=== PATIENT | male | born 1940 | race Caucasian/White ===

== ENCOUNTER 2018-04-11 07:54 | Outpatient (CLI) | payer MEDICARE ==
--- NOTE | 2018-04-11 09:31 | RAD ---
PA AND LATERAL CHEST: Indication: Radiculopathy, chest pain. Comparison: None. FINDINGS: The lungs are hyperinflated but clear. Heart size is upper limits of normal. There is mild thoracic s coliosis and diffuse osteopenia with multilevel spondylosis. IMPRESSION: 1. No acute cardiopulmonary abnormality. 2. Hyperinflation consistent with changes of COPD. POS: TPC
== END 2018-04-11 07:55 | disposition home or self-care (01) ==
LOC: RAD 07:54
PROVIDERS: ATTEND Internal Medicine Critical Care Medicine
DX: R06.00 Dyspnea, unspecified (principal); R91.8 Other nonspecific abnormal finding of lung field
CPT/HCPCS: 71046

== ENCOUNTER 2018-11-22 07:04 | Outpatient (CLI) | payer MEDICARE ==
--- NOTE | 2018-11-22 07:54 | ULT ---
Abdominal aortic ultrasound: INDICATIONS: Screening. History of nicotine use. FINDINGS: Mild atherosclerotic change seen in the abdominal aorta. No aneurysmal dilatation. Proximal abdominal aorta: 2.6 cm diameter Mid abdominal aorta: 2.3 cm diameter Distal abdominal aorta: 1.7 cm diameter Proximal common iliac arteries: 1 cm diameter IMPRESSION: No evidence of abdominal aortic aneurysm
== END 2018-11-22 07:05 | disposition home or self-care (01) ==
LOC: SCSULT 07:04
PROVIDERS: ATTEND Family Medicine
DX: Z13.6 Encounter for screening for cardiovascular disorders (principal)
CPT/HCPCS: 76775

== ENCOUNTER 2018-12-28 10:19 | Outpatient (CLI) | payer MEDICARE | END 2018-12-28 10:20 | disposition home or self-care (01) | LOC: CTENTCT 10:19 | PROVIDERS: ATTEND Otolaryngology Plastic Surgery within the Head & Neck | DX: J01.81 Other acute recurrent sinusitis (principal) | CPT/HCPCS: 70486 ==

== ENCOUNTER 2019-01-10 06:23 | Day surgery (SDC) | payer MEDICARE ==
[2019-01-09 15:10] VITALS: BMI 21.1
[2019-01-10] MEDS ORDERED: Oxymetazoline HCl 0.05% ( 15 ML ) ONE ×2 (06:46→07:07)
[2019-01-10] MEDS ORDERED: Lidocaine 1% w/Epinephrine 1:100K 20 ML VIAL ONE (07:07)
[2019-01-10] MEDS ORDERED: Fentanyl 100 MCG/2 ML VIAL ONE ×2 (07:09→08:16)
[2019-01-10 07:15] LABS: Hemoglobin 14.2 g/dL (14.0-18.0)
[2019-01-10] MEDS ORDERED: Dextrose 50% Abboject 50 ML SYRINGE ONE (07:22)
[2019-01-10 07:39] LABS: Anion Gap 10 mmol/L (10-20); BUN (Urea Nitrogen) 14 mg/dL (8.4-25.7); Calc. Creatinine Clearance 77 mL/min (70-130); Calcium 9.6 mg/dL (7.8-10.44); Carbon Dioxide 27 mmol/L (23-31); Chloride 108 mmol/L (98-107); Estimated GFR-MDRD 89; Glucose 61 mg/dL (83-110); Potassium 4.3 mmol/L (3.5-5.1); Sodium 141 mmol/L (136-145)
[2019-01-10] MEDS ORDERED: Bacitracin Zinc Ointment 30 gm TUBE ONE (07:48)
--- NOTE | 2019-01-10 11:21 | OP ---
DATE OF PROCEDURE: 01/10/2019 PREOPERATIVE DIAGNOSES: 1. Bilateral nasal polyposis. 2. Allergic fungal sinusitis. 3. Chronic rhinosinusitis. 4. Bilateral inferior turbinate hypertrophy. POSTOPERATIVE DIAGNOSES: 1. Bilateral nasal polyposis. 2. Allergic fungal sinusitis. 3. Chronic rhinosinusitis. 4. Bilateral inferior turbinate hypertrophy. PROCEDURES PERFORMED: 1. Bilateral endoscopic sinus surgery, frontal sinusotomies with removal of tissue. 2. Bilateral endoscopic sinus surgery, maxillary antrostomies with removal of tissue. 3. Bilateral endoscopic sinus surgery, sphenoidotomies with removal of tissue. 4. Bilateral inferior turbinate submucosal resection. ESTIMATED BLOOD LOSS: 50 mL. COMPLICATIONS: None. ANESTHESIA: GETA. PROCEDURE IN DETAIL: The patient was taken to the operating room, placed supine on the table. General endotracheal anesthesia was obtained by the anesthesia staff. Tube was secured in the left lower lip. The patient was placed in the beach chair position. Following this, Afrin pledgets were placed in nasal cavity. The patient was prepped and draped for standard nasal procedure. Following this, a 0-degree endoscope was advanced in the middle meatus. The middle turbinates were scarred completely to the lateral nasal wall. There was significant amount of scar, and nasal polyps were encountered as the middle meatus was dissected. The middle turbinates were gently medialized on the right side. The anterior portion of the middle turbinate had to be removed in order to provide access into the ethmoidal area. The previous antrostomies were barely visible, but had purulence streaming from the medial maxillary wall. This area was widened using the curved microdebrider bilaterally. Thick nasal polyps and allergic fungal debris were removed from the maxillary sinuses bilaterally. Following this, 40-degree scope and up-biting microdebrider blade were used to identify and open the frontal recess and frontal sinus ostia bilaterally. There was near complete scarring in this area, where fungal debris and nasal polyps were encountered throughout the frontal sinuses bilaterally. They were cleaned using curved suctions and irrigation device. Following this, the 0-degree microdebrider was then used to trim the remnant ethmoidal cells that had been previously resected. The sphenoid sinus was then approached using the 0-degree microdebrider and 0-degree endoscope, where anterior wall of the sphenoid sinus was encountered and was re-punctured using the microdebrider. Sphenoidotomies were created bilaterally using the 0-degree microdebrider in a medial and inferior direction. Allergic fungal debris and polyps were encountered within the sphenoid sinuses as well. Following this, the nasal cavity was irrigated. Mirapex was placed. Merocel pack was placed in the right nasal cavity. Job ID: [id number]
== END 2019-01-10 09:45 | disposition home or self-care (01) ==
LOC: SDC 06:23
PROVIDERS: ATTEND Otolaryngology Plastic Surgery within the Head & Neck
PROC: 099R8ZZ Drainage of Left Maxillary Sinus, Via Natural or Artificial Opening Endoscopic (ICD-10-PCS; principal; 2019-01-10)
PROC: 099Q8ZZ Drainage of Right Maxillary Sinus, Via Natural or Artificial Opening Endoscopic (ICD-10-PCS; 2019-01-10)
PROC: 09TL8ZZ Resection of Nasal Turbinate, Via Natural or Artificial Opening Endoscopic (ICD-10-PCS; 2019-01-10)
DX: J33.0 Polyp of nasal cavity (principal); J32.8 Other chronic sinusitis; J34.3 Hypertrophy of nasal turbinates; E11.9 Type 2 diabetes mellitus without complications; J45.909 Unspecified asthma, uncomplicated; Z79.4 Long term (current) use of insulin; Z79.82 Long term (current) use of aspirin; Z79.899 Other long term (current) drug therapy
CPT/HCPCS: 36415; 36416; 80048; 85014; 85018; 87070; 87102; 87205; 87206; 93005; 93010; J2001; J3010

== ENCOUNTER 2019-06-24 15:23 | Emergency (ER) | payer MEDICARE ==
[2019-06-24 16:05] LABS: #Basophils 0.1 thou/uL (0.0-0.2); #Eosinphils 1.6 thou/uL (0.0-0.7); #Lymphocytes 1.7 thou/uL (1.20-3.40); #Monocytes 1.3 thou/uL (0.11-0.59); #Neutrophils 6.7 thou/uL (1.40-6.50); %Lymphocytes 15.2 % (21.0-51.0); %Neutrophils 58.9 % (42.0-75.0); Hemoglobin 14.9 g/dL (14.0-18.0); Mean Corpuscular HGB CONC 33.5 g/dL (32.0-36.0); Mean Corpuscular Hemoglobin 31.8 pg (27.0-31.0); Mean Corpuscular Volume 94.7 fL (78.0-98.0); Mean Platelet Volume 7.1 fL (7.4-10.4); Platelet Count 307 thou/uL (130-400); RBC Distribution Width 12.3 % (11.5-14.5); White Blood Cell (WBC) Count 11.4 thou/uL (4.8-10.8)
[2019-06-24 16:29] LABS: ALT (SGPT) 20 U/L (8-55); AST (SGOT) 20 U/L (5-34); Albumin 4.2 g/dL (3.4-4.8); Alkaline Phosphatase 71 U/L (40-110); Anion Gap 14 mmol/L (10-20); BUN (Urea Nitrogen) 15 mg/dL (8.4-25.7); Bilirubin, Total 0.3 mg/dL (0.2-1.2); Calc. Creatinine Clearance 0 mL/min (70-130); Calcium 9.4 mg/dL (7.8-10.44); Carbon Dioxide 26 mmol/L (23-31); Chloride 105 mmol/L (98-107); Estimated GFR-MDRD 75; Globulin 2.8 g/dL (2.4-3.5); Glucose 81 mg/dL (83-110); Potassium 3.5 mmol/L (3.5-5.1); Sodium 141 mmol/L (136-145)
--- NOTE | 2019-06-24 16:29 | RAD ---
Chest AP view INDICATION: Found unresponsive with low blood sugar COMPARISON: Prior examination dated April 11, 2018 FINDINGS: Lungs:There is stable severe emphysema. No consolidation is evident. Cardiac silhouette:The cardiomediastinal silhouette appears within normal limits. Pulmonary vasculature:Normal Pleural spaces:No pleural effusion or pneumothorax is demonstrated. Upper abdomen:No abnormality seen. Osseous structures: No acute fracture or subluxation demonstrated. There is stable mild thoracic scol iosis. There is scattered degenerative and osteoarthritic change present. Additional findings:None. IMPRESSION: Stable emphysema. No acute cardiopulmonary abnormality.
[2019-06-24 17:12] LABS: Bacteria/HPF None Seen HPF (None Seen); Bilirubin Negative (Negative); Blood, Urine Trace (Negative); Clarity Clear (Clear); Glucose, Urine (Dipstick) Normal (Negative); Leukocyte Negative Leu/uL (Negative); Mucous/LPF Rare LPF (<2+); Nitrite Negative (Negative); Protein, Urine (Dipstick) 50 mg/dL (Neg-Trace); RBC/HPF 0-3 HPF (0-3); Squamous Epithelial None Seen HPF (0-3); Urobilinogen Normal mg/dL (Less than 2); WBC/HPF 0-3 HPF (0-3)
== END 2019-06-24 19:18 | disposition home or self-care (01) ==
LOC: ERS 15:23
DX: E10.649 Type 1 diabetes mellitus with hypoglycemia without coma (principal); J45.909 Unspecified asthma, uncomplicated
CPT/HCPCS: 36415; 36416; 71045; 80053; 81003; 81015; 85025; 87804

== ENCOUNTER 2019-07-06 10:32 | Inpatient (IN) | payer MEDICARE ==
[2019-07-06 11:07] LABS: #Basophils 0.1 thou/uL (0.0-0.2); #Eosinphils 0.9 thou/uL (0.0-0.7); #Lymphocytes 1.3 thou/uL (1.20-3.40); #Monocytes 0.4 thou/uL (0.11-0.59); #Neutrophils 7.6 thou/uL (1.40-6.50); %Basophils 0.6 % (0.0-1.0); %Eosinophils 9.1 % (0.0-10.0); %Lymphocytes 12.7 % (21.0-51.0); %Monocytes 3.6 % (0.0-10.0); %Neutrophils 74.1 % (42.0-75.0); Hemoglobin 15.5 g/dL (14.0-18.0); Mean Corpuscular HGB CONC 33.6 g/dL (32.0-36.0); Mean Corpuscular Hemoglobin 31.7 pg (27.0-31.0); Mean Corpuscular Volume 94.3 fL (78.0-98.0); Mean Platelet Volume 8.1 fL (7.4-10.4); Platelet Count 253 thou/uL (130-400); RBC Distribution Width 12.3 % (11.5-14.5); White Blood Cell (WBC) Count 10.3 thou/uL (4.8-10.8)
[2019-07-06] MEDS ORDERED: Magnesium 2 GM/50 ML BAG (IN WATER) ONE (11:09)
--- NOTE | 2019-07-06 11:26 | RAD ---
EXAM: Single view of the chest HISTORY: Difficulty breathing COMPARISON: 06/24/2019 FINDINGS: Single view of the chest shows a normal sized cardiomediastinal silhouette. There is no patricia dence of consolidation, mass, or pleural effusion. Degenerative changes are seen in the spine. IMPRESSION: No evidence of acute cardiopulmonary disease
[2019-07-06 11:29] LABS: ALT (SGPT) 18 U/L (8-55); AST (SGOT) 14 U/L (5-34); Albumin 4.2 g/dL (3.4-4.8); Alkaline Phosphatase 81 U/L (40-110); Anion Gap 16 mmol/L (10-20); BUN (Urea Nitrogen) 17 mg/dL (8.4-25.7); Bilirubin, Total 0.8 mg/dL (0.2-1.2); Calc. Creatinine Clearance 0 mL/min (70-130); Calcium 9.8 mg/dL (7.8-10.44); Carbon Dioxide 21 mmol/L (23-31); Chloride 104 mmol/L (98-107); Estimated GFR-MDRD 68; Glucose 267 mg/dL (83-110); Potassium 4.1 mmol/L (3.5-5.1); Protein, Total 7.2 g/dL (5.8-8.1); Sodium 137 mmol/L (136-145)
[2019-07-06] MEDS ORDERED: Albuterol Sulfate 2.5 mg/3 ml Neb ONE (13:12)
[2019-07-06] MEDS ORDERED: Insulin Regular 300 UNITS/3 ML VIAL ONE (15:00)
[2019-07-06] MEDS ORDERED: Ondansetron ODT 4 MG TAB SL PRN (16:29)
[2019-07-06] MEDS ORDERED: Ondansetron PF 4 MG/2 ML Vial IVP PRN (16:29)
[2019-07-06 16:33] VITALS: BMI 21.2
[2019-07-06] MEDS ORDERED: Acetaminophen 325 MG TAB PO PRN (17:24)
[2019-07-06] MEDS ORDERED: Dextrose 50% Abboject 50 ML SYRINGE SLOW IVP PRN (17:27)
[2019-07-06] MEDS ORDERED: Dextrose 5% in Water 1,000 ML IV PRN (17:27)
[2019-07-06] MEDS ORDERED: Benzonatate 100 MG CAP PO PRN (17:54)
[2019-07-06] MEDS ORDERED: Guaifenesin DM 100-10/5 ML UDCUP PO PRN (17:55)
[2019-07-06] MEDS: methylPREDNISolone Sod Succ 40 MG VIAL IVP SCH ×2 (18:04→23:43)
--- NOTE | 2019-07-06 18:19 | HP ---
PRIMARY CARE PHYSICIAN: Dr. Shaw. [facility] OP: Dr. Cantrell. CHIEF COMPLAINT: Shortness of breath, cough and wheezing for one week, worse in the past 3-4 days. HISTORY OF PRESENT ILLNESS: A 79-year-old male with past medical history of type 1 diabetes mellitus, on Levemir and Humalog; asthma, remote nicotine use, overactive bladder, who was referred to [facility] from Urgent Care after presenting there with 1-week history of worsening dyspnea, cough, wheezing, that worse in the past 3 to 4 days with functional limitations prompting Urgent Care evaluation. The patient is unable to see his housing case manager. The patient denies any recent sick contacts or flu-like symptoms. He received his influenza vaccine this season. He is unaware of any triggers. He has been compliant with twice daily Brovana and budesonide nebulizers and has been using albuterol rescue inhaler on an increased amount without any symptom relief. At Urgent Care, the patient received 3 nebulized treatments and a Decadron injection with ongoing respiratory complaints and wheezing and a chest x-ray was unremarkable. He was referred to [place] [facility] for further evaluation. In ER, the patient received additional nebulized bronchodilators as well as IV magnesium sulfate, but symptoms persisted and he was admitted for further observation. At bedside, the patient is accompanied by his spouse and [id number]. He corroborates history. He offers no other acute complaints. He reports his last asthma flare-up was 4 months ago and he sought outpatient evaluation at that time. He denies any prior history of ventilator dependence. He otherwise feels well. He denies any recent travel or any increased outdoor exposure. PAST MEDICAL HISTORY: Type 1 diabetes mellitus, asthma, overactive bladder. PAST SURGICAL HISTORY: Appendectomy, varicocele surgery, cervical neck fusion. SOCIAL HISTORY: The patient is , lives at home with his spouse. Admits to remote nicotine dependence. He denies any current tobacco use. He drinks beer 3 times per week. He is ambulatory and functional without assistive device. He does not use home oxygen. ALLERGIES: NONE DOCUMENTED. REVIEW OF SYSTEMS: Pertinent positives as per HPI. Remainder of review of systems negative. HOME MEDICATION: Will be reviewed as per admission medication reconciliation. FAMILY HISTORY: The patient denies any chronic medical problems in family members. PHYSICAL EXAMINATION: VITAL SIGNS: T-max, afebrile at 97.6; pulse 98, respirations 18, blood pressure 154/68, oxygen saturation 96% on room air. GENERAL APPEARANCE: Elderly thin male, who is awake, alert, oriented, quite lucid, speaking in full complete sentences. Mildly tachypneic. HEENT: Normocephalic, atraumatic. No facial asymmetry. Mucous membranes moist. Pupils are equally round. Extraocular muscles intact. NECK: Supple. CARDIOVASCULAR: S1 and S2. Regular rate and rhythm. No harsh murmurs. No reproducible chest wall tenderness to palpation. LUNGS: The patient is tachypneic with mild increased work of breathing noted. Diffuse expiratory wheezing throughout bilateral posterior lung oliveros with no rales audible. ABDOMEN: Soft, nontender, nondistended. EXTREMITIES: No appreciable lower extremity edema. SKIN: Warm to touch without rash, pallor, or abrasion. LABORATORY VALUES: WBC 10.3, H and H 15.5/46.2, platelets 253. Differential is otherwise unremarkable. Chemistry; sodium 137, potassium 4.1, chloride 104, bicarb 21, glucose 267, BUN and creatinine 17/1.06, GFR 68. LFTs unremarkable. Troponin I negative x1. BNP 28. Magnesium 1.9. Accu-Chek 398. IMAGING STUDIES: A one view chest x-ray on 07/06/2019, reveals no evidence of acute cardiopulmonary disease. ASSESSMENT: 1. Acute asthma exacerbation of unspecified etiology. The patient will be admitted as observation status. He is noted to have worsening respiratory symptoms for the past 1 week, particularly exacerbating last 3 to 4 days. No relief with temporizing home measures. We will continue parenteral glucocorticoids in the setting of known type 1 diabetes mellitus and monitor for glycemic control, continue nebulized bronchodilators while awake, and supportive therapies with as needed antitussive agents. We will monitor for symptom response and consider Pulmonology evaluation in a.m. if no significant improvement. The patient denies any prior history of ventilator dependence. We will check a respiratory pathogen panel. Restart Brovana and budesonide twice daily nebulizers. 2. Type 1 diabetes mellitus. We will increase basal insulin to 25 units nightly and continue premeal Humalog 10 units and insulin sliding scale coverage. The patient reports recent ER evaluation for symptomatic hypoglycemia. These changes will be temporary noting IV steroid use. 3. History of remote nicotine dependence. 4. Overactive bladder. Continue Myrbetriq. 5. DVT prophylaxis: SCDs and ambulation. 6. Disposition: The patient will be admitted to observation status. Anticipate less than 24-hour stay pending the patient's clinical course. Job ID: [id number]
[2019-07-06] MEDS: Arformoterol 15 MCG/2 ML NEB NEB SCH (19:56)
[2019-07-06] MEDS: Budesonide 0.5 MG/2 ML NEB NEB SCH (20:10)
[2019-07-06] MEDS: Insulin Glargine 25 UNITS in Pre-Filled Syringe 1 EACH SC SCH (20:40)
[2019-07-06] MEDS: HumaLOG 300 UNITS/3 ML VIAL SC PRN (20:41)
[2019-07-07] MEDS: methylPREDNISolone Sod Succ 40 MG VIAL IVP SCH ×3 (05:56→21:01)
[2019-07-07] MEDS: HumaLOG 300 UNITS/3 ML VIAL SC SCH ×3 (06:02→18:03)
[2019-07-07] MEDS: Budesonide 0.5 MG/2 ML NEB NEB SCH (07:55)
[2019-07-07] MEDS: Arformoterol 15 MCG/2 ML NEB NEB SCH ×2 (07:56→20:04)
[2019-07-07] MEDS: Aspirin 81 mg Enteric Coated Tablet PO SCH (08:17)
--- NOTE | 2019-07-07 12:22 | PDOC.HOSPP ---
- Subjective Encounter Date: 07/07/19 Encounter Time: 12:15 Subjective: cc: f/u for asthma exacerbation subjective: feels no better. still with significant wheezing and exacerbated with deep breaths and coughing. notes functional limitations. did not sleep well overnight. notes history of sinus surgery january 2019. concerned about his elevated accuchecks. spouse at bedside and agrees. nurse notes elevated accuchecks. - Objective Vital Signs & Weight: Vital Signs (12 hours) Temp Pulse Resp BP Pulse Ox 07/07/19 12:00 103 H 20 134/62 07/07/19 11:30 98 20 99 07/07/19 07:56 65 20 99 07/07/19 07:53 65 20 99 07/07/19 07:51 97.7 F 84 18 160/72 H 96 07/07/19 04:14 98.0 F 94 18 119/80 96 Weight Weight 161 lb 4.8 oz I&O: 07/06/19 07/07/19 07/08/19 06:59 06:59 06:59 Intake Total 1682 Output Total 1325 Balance 357 Result Diagrams: 07/06/19 10:57 07/06/19 10:57 Additional Labs: Accuchecks 07/07/19 07/07/19 07/06/19 10:54 05:59 20:26 POC Glucose 417 H 330 H 474 H 07/06/19 16:54 POC Glucose 398 H Hospitalist ROS - Review of Systems Other: ROS: pertinent positive per SUBJECTIVE; remainder ROS negative - Medication Medications: Active Medications Generic Name Dose Route Start Last Admin Trade Name Freq PRN Reason Stop Dose Admin Albuterol/Ipratropium 3 ml 07/06/19 19:00 07/07/19 11:30 Duoneb EZPAP 3 ml [id number] DEVANTE Administration Arformoterol Tartrate 15 mcg 07/06/19 18:30 07/07/19 07:56 Brovana NEB 15 mcg BID-RT DEVANTE Administration Aspirin 81 mg 07/07/19 09:00 07/07/19 08:17 Ecotrin PO 81 mg DAILY DEVANTE Administration Budesonide 0.5 mg 07/06/19 18:30 07/07/19 07:55 Pulmicort Neb Solution NEB 0.5 mg BID-RT DEVANTE Administration Insulin Glargine 25 units/ 0.25 mls @ 0 mls/hr 07/06/19 21:00 07/06/19 20:40 Miscellaneous Medication SC 0.25 mls HS DEVANTE Administration Insulin Human Lispro 10 units 07/07/19 08:00 07/07/19 06:02 Humalog SC 10 unit 0800 DEVANTE Administration Insulin Human Lispro 10 units 07/07/19 12:00 07/07/19 11:03 Humalog SC 10 unit 1200 DEVANTE Administration Insulin Human Lispro 0 units 07/06/19 17:27 07/06/19 20:41 Humalog SC 5 unit .BEDTIME SLIDING SC PRN Administration Bedtime Correctional Scale Mirabegron 50 mg 07/06/19 21:00 07/06/19 20:39 Myrbetriq Er PO 50 mg HS DEVANTE Administration Sodium Chloride 10 ml 07/06/19 16:29 07/07/19 05:56 Flush - Normal Saline IVF 10 ml PRN PRN Administration Saline Flush - Exam General Appearance: awake alert Eye: PERRL, anicteric sclera ENT: normocephalic atraumatic, no oropharyngeal lesions, moist mucosa Neck: supple Heart: RRR, no murmur Respiratory: normal chest expansion Respiratory - other findings: diffuse wheezing in bilateral posterior lung oliveros with cough spasms Gastrointestinal: soft, non-tender, non-distended Extremities: no cyanosis, no clubbing, no edema Skin: normal turgor, no lesions Neurological: normal sensation to touch, no weakness, no focal deficits Musculoskeletal: normal tone, normal strength, no muscle wasting Psychiatric: normal affect, normal behavior, A&O x 3 Hosp A/P - Plan Acute asthma exacerbation: unchanged. patient unsafe for discharge due to respiratory symptoms. will change to inpatient status and continue IV steroids but decrease to 40 mg q8 hours, continue nebulizers, start claritin and singulair, continue prn antitussive agents, start IV zithromax, consult pulmonology and monitor for symptom improvement. consult PT and OT in AM T1DM with hyperglycemia. iv steroids resulting in uncontrolled accuchecks. Continue increased nightly Lantus 25 unitsand given additional Lantus 15 units now. Discussed with patient and spouse who agree with plan and note patient previously required up to this amount of basal insulin; continue 10 units Humalog TIDAC and additional ac/hs ISS. Accuchecks have persisted over 400. History sinus surgery BPH. continue myrbetriq DVT px:SCD. start LMWH im AM code status: full code Dispo: change to inpatient status
[2019-07-07] MEDS ORDERED: Insulin Glargine 15 UNITS in Pre-Filled Syringe 1 EACH SC SCH (12:30)
[2019-07-07] MEDS: HumaLOG 300 UNITS/3 ML VIAL SC PRN ×2 (12:43→18:04)
[2019-07-07] MEDS ORDERED: Loratadine 10 MG TAB PO SCH (13:15)
[2019-07-07] MEDS ORDERED: Bacteriostatic Water 30 ML VIAL FS PRN (13:15)
[2019-07-07] MEDS: Azithromycin 500 MG in Sodium Chloride 0.9% 250 ML 250 ML IVPB SCH (13:54)
--- NOTE | 2019-07-07 15:48 | CON ---
DATE OF CONSULTATION: 07/07/2019 CONSULTING PHYSICIAN: Hospitalist Group. REASON FOR CONSULTATION: Asthma exacerbation. HISTORY OF PRESENT ILLNESS: Mr. Espino is a pleasant 79-year-old male, who sees Dr. Cantrell as an outpatient for asthma. He has been taking inhaled budesonide and formoterol twice a day for his asthma. Over the last 4 days, symptoms have been worse and he has not been responding to that medication. He was taken to the clinic and was given about 3 breathing treatments without improvement. He was given a dose of IV steroids, subsequently sent over here for further evaluation. He was initially put on observation, but has now been admitted to the hospital. PAST MEDICAL HISTORY: 1. Asthma. 2. Diabetes mellitus. 3. Overactive bladder. PAST SURGICAL HISTORY: 1. Appendectomy. 2. Varicella surgery. 3. Cervical neck fusion. SOCIAL HISTORY: The patient smoked, but quit about 40 years ago. Does not consume alcohol at significant quantities, but does have an occasional beer. REVIEW OF SYSTEMS: Twelve-point review of systems is otherwise negative. ALLERGIES: NONE. FAMILY MEDICAL HISTORY: Unremarkable. MEDICATIONS: Prior to admission, in addition to the above, he is taking; 1. Mirabegron. 2. Levemir insulin. 3. NovoLog insulin. 4. Budesonide. 5. Aspirin. PHYSICAL EXAMINATION: VITAL SIGNS: Temperature 97.7, pulse 103, respirations 20, O2 saturation 99% room air, and blood pressure 134/62. GENERAL: He is awake and alert. He has audible wheezing when talking. HEENT: Unremarkable. NECK: No adenopathy or JVD. LUNGS: [id number] wheezing bilaterally with no accessory muscle use. CARDIAC: S1 and S2. Regular. ABDOMEN: Soft. EXTREMITIES: No edema. LABORATORY DATA: White blood cell count 10.3, hematocrit 46.2, and platelet count 253. Sodium 137, potassium 4.1, chloride 104, CO2 of 21, BUN 17, creatinine 1.1, and glucose 267. ASSESSMENT: Asthma with exacerbation. PLAN: He needs IV corticosteroids, aggressive nebulization therapy, and antibiotics. He needs to stay in the hospital until he feels better. Right now, nothing on his x-ray looks like acute pneumonia. This encompassed 50 minutes of time, of that time, greater than 50% was spent with the patient and/or the patient's unit in the hospital. Job ID: [id number]
[2019-07-07] MEDS: Budesonide 0.5 MG/2 ML NEB INH SCH (20:04)
[2019-07-07] MEDS: diphenhydrAMINE 25 MG CAP PO SCH (21:00)
[2019-07-07] MEDS: Montelukast Sodium 10 mg Tablet PO SCH (21:00)
[2019-07-07] MEDS: Insulin Glargine 25 UNITS in Pre-Filled Syringe 1 EACH SC SCH (21:01)
[2019-07-08] MEDS: methylPREDNISolone Sod Succ 40 MG VIAL IVP SCH ×3 (05:22→21:47)
[2019-07-08] MEDS: Budesonide 0.5 MG/2 ML NEB INH SCH ×2 (08:00→19:52)
[2019-07-08] MEDS: Arformoterol 15 MCG/2 ML NEB NEB SCH ×2 (08:00→19:52)
[2019-07-08] MEDS: Loratadine 10 MG TAB PO SCH (08:49)
[2019-07-08] MEDS: Aspirin 81 mg Enteric Coated Tablet PO SCH (08:49)
[2019-07-08] MEDS: HumaLOG 300 UNITS/3 ML VIAL SC SCH ×3 (08:49→16:57)
--- NOTE | 2019-07-08 10:38 | PDOC.HOSPP ---
- Subjective Encounter Date: 07/08/19 Encounter Time: 10:15 Subjective: cc: f/u for asthma exacerbation subjective: seen this morning. spouse at bedside. feels a little better at rest but wheezing with coughing episodes and dyspneic on exertion. does not feel back to his baseline. - Objective Vital Signs & Weight: Vital Signs (12 hours) Temp Pulse Resp BP BP Pulse Ox 07/08/19 08:00 97.5 F L 84 20 120/70 98 07/08/19 04:00 97.8 F 86 20 135/69 95 Weight Weight 161 lb 4.8 oz I&O: 07/07/19 07/08/19 07/09/19 06:59 06:59 06:59 Intake Total 1682 Output Total 1325 Balance 357 Result Diagrams: 07/06/19 10:57 07/06/19 10:57 Additional Labs: Accuchecks 07/08/19 07/07/19 07/07/19 04:34 20:56 18:05 POC Glucose 192 H 132 H 298 H 07/07/19 10:54 POC Glucose 417 H Hospitalist ROS - Review of Systems Other: ROS: pertinent positives per SUBJECTIVE; remainder ROS negative - Medication Medications: Active Medications Generic Name Dose Route Start Last Admin Trade Name Freq PRN Reason Stop Dose Admin Albuterol/Ipratropium 3 ml 07/06/19 19:00 07/08/19 08:01 Duoneb EZPAP 3 ml [id number] DEVANTE Administration Arformoterol Tartrate 15 mcg 07/06/19 18:30 07/08/19 08:00 Brovana NEB 15 mcg BID-RT DEVANTE Administration Aspirin 81 mg 07/07/19 09:00 07/08/19 08:49 Ecotrin PO 81 mg DAILY DEVANTE Administration Budesonide 0.5 mg 07/07/19 18:30 07/08/19 08:00 Pulmicort Neb Solution INH 0.5 mg BID-RT DEVANTE Administration Diphenhydramine HCl 25 mg 07/07/19 21:00 07/07/19 21:00 Benadryl PO 25 mg HS DEVANTE Administration Insulin Glargine 25 units/ 0.25 mls @ 0 mls/hr 07/06/19 21:00 07/07/19 21:01 Miscellaneous Medication SC 0.25 mls HS DEVANTE Administration Azithromycin 500 mg/ Sodium 250 mls @ 250 mls/hr 07/07/19 14:00 07/07/19 13: 54 Chloride IVPB 250 mls 1400 DEVANTE Administration Insulin Human Lispro 10 units 07/07/19 08:00 07/08/19 08:49 Humalog SC 10 unit 0800 DEVANTE Administration Insulin Human Lispro 10 units 07/07/19 12:00 07/07/19 11:03 Humalog SC 10 unit 1200 DEVANTE Administration Insulin Human Lispro 10 units 07/07/19 17:00 07/07/19 18:03 Humalog SC 10 unit 1700 DEVANTE Administration Insulin Human Lispro 0 units 07/06/19 17:27 07/07/19 18:04 Humalog SC 6 unit .MODERATE SLIDING SC PRN Administration Moderate Correctional Scale Insulin Human Lispro 0 units 07/06/19 17:27 07/06/19 20:41 Humalog SC 5 unit .BEDTIME SLIDING SC PRN Administration Bedtime Correctional Scale Loratadine 10 mg 07/08/19 09:00 07/08/19 08:49 Claritin PO 10 mg DAILY DEVANTE Administration Methylprednisolone Sodium Succinate 40 mg 07/07/19 22:00 07/08/19 05:22 Solu-Medrol IVP 40 mg Q8HR DEVANTE Administration Mirabegron 50 mg 07/06/19 21:00 07/07/19 21:00 Myrbetriq Er PO 50 mg HS DEVANTE Administration Montelukast Sodium 10 mg 07/07/19 21:00 07/07/19 21:00 Singulair PO 10 mg QPM DEVANTE Administration Sodium Chloride 10 ml 07/06/19 16:29 07/07/19 05:56 Flush - Normal Saline IVF 10 ml PRN PRN Administration Saline Flush Hosp A/P - Plan PHYSICAL EXAM: General Appearance: awake alert Eye: PERRL, anicteric sclera ENT: normocephalic atraumatic, no oropharyngeal lesions, moist mucosa Neck: supple Heart: RRR, no murmur Respiratory: normal chest expansion Respiratory - other findings: diffuse wheezing in bilateral posterior lung oliveros with cough spasms Gastrointestinal: soft, non-tender, non-distended Extremities: no cyanosis, no clubbing, no edema Skin: normal turgor, no lesions Neurological: normal sensation to touch, no weakness, no focal deficits Musculoskeletal: normal tone, normal strength, no muscle wasting Psychiatric: normal affect, normal behavior, A&O x 3 Acute asthma exacerbation: some improvement but not back towards baseline. continue IV solu-medrol 40 mg q8 hours, schedule duonebs, nebulizers with budesonide and brovana, claritin, singulair, IV zithromax, continue prn antitussive agents. Pulmonology following. continue PT and OT. T1DM with hyperglycemia. monitor accuchecks with basal and log insulin and ISS coverage History sinus surgery 01/2019 BPH. continue myrbetriq DVT px: start LMWH code status: full code Dispo: continue inpatient monitoring.
[2019-07-08] MEDS: HumaLOG 300 UNITS/3 ML VIAL SC PRN ×2 (11:43→22:03)
--- NOTE | 2019-07-08 13:18 | PRG ---
DATE OF SERVICE: 07/08/2019 SUBJECTIVE: He says he feels better than yesterday, but not quite back to baseline. OBJECTIVE: VITAL SIGNS: Temperature is 98.0, pulse 98, respirations 16, O2 saturation 100% on room air, blood pressure 124/67. HEAD AND NECK: Unremarkable. LUNGS: Have diffuse wheezing, but better than yesterday. CARDIAC: S1 and S2. Regular. ABDOMEN: Soft. EXTREMITIES: No edema. ASSESSMENT: Asthma with exacerbation. PLAN: Continue the antibiotics. Schedule nebulization treatments and IV steroids. Hopefully, able to go home in the next 1 to 2 days. Job ID: [id number]
[2019-07-08] MEDS: Azithromycin 500 MG in Sodium Chloride 0.9% 250 ML 250 ML IVPB SCH (14:25)
[2019-07-08] MEDS ORDERED: Clopidogrel Bisulfate 75 MG TAB ONE (21:36)
[2019-07-08] MEDS: Montelukast Sodium 10 mg Tablet PO SCH (21:46)
[2019-07-08] MEDS: diphenhydrAMINE 25 MG CAP PO SCH (21:46)
[2019-07-08] MEDS: Insulin Glargine 25 UNITS in Pre-Filled Syringe 1 EACH SC SCH (22:01)
[2019-07-09] MEDS: methylPREDNISolone Sod Succ 40 MG VIAL IVP SCH ×3 (05:35→22:47)
[2019-07-09] MEDS: HumaLOG 300 UNITS/3 ML VIAL SC PRN (05:39)
[2019-07-09] MEDS: Arformoterol 15 MCG/2 ML NEB NEB SCH ×2 (06:56→19:46)
[2019-07-09] MEDS: Budesonide 0.5 MG/2 ML NEB INH SCH ×2 (06:58→19:46)
[2019-07-09] MEDS: Aspirin 81 mg Enteric Coated Tablet PO SCH (09:01)
[2019-07-09] MEDS: Loratadine 10 MG TAB PO SCH (09:01)
[2019-07-09] MEDS: HumaLOG 300 UNITS/3 ML VIAL SC SCH ×3 (09:01→17:45)
[2019-07-09] MEDS: Enoxaparin Sodium 40 MG/0.4 ML SYRINGE SC SCH (09:01)
--- NOTE | 2019-07-09 09:05 | PRG ---
DATE OF SERVICE: 07/09/2019 SUBJECTIVE: The patient is doing reasonably well without much change. He is still coughing up purulent secretions and wheezing. OBJECTIVE: VITAL SIGNS: Temperature 98.0, pulse 99, O2 saturation 99%, and blood pressure 167/77. HEENT: Unremarkable. NECK: No adenopathy or JVD. LUNGS: Diffuse wheezing. CARDIAC: S1 and S2. Regular. ABDOMEN: Soft. EXTREMITIES: No edema. ASSESSMENT: Asthma with exacerbation. PLAN: The patient is not ready to go home. He is to continue steroids, nebulization treatments, and antibiotics. Job ID: [id number]
--- NOTE | 2019-07-09 12:27 | PDOC.HOSPP ---
- Subjective Encounter Date: 07/09/19 Encounter Time: 12:15 Subjective: cc: f/u for asthma exacerbation subjective:patient seen this afternoon. spouse at bedside. feels a little better primarily at rest but he still voices concern of dyspnea and wheezing and spasms with exertion and deep breaths with coughing. nurse notes no acute overnight events. - Objective Vital Signs & Weight: Vital Signs (12 hours) Temp Pulse Resp BP Pulse Ox 07/09/19 11:46 98.3 F 85 16 135/69 99 07/09/19 10:33 78 16 97 07/09/19 07:48 98.0 F 99 16 167/77 H 99 07/09/19 06:58 102 H 18 100 07/09/19 06:56 102 H 18 100 07/09/19 04:23 98.1 F 90 18 116/65 96 Weight Weight 161 lb 4.8 oz I&O: 07/08/19 07/09/19 07/10/19 06:59 06:59 06:59 Intake Total 240 400 Output Total 350 Balance -110 400 Result Diagrams: 07/06/19 10:57 07/06/19 10:57 Additional Labs: Accuchecks 07/09/19 07/09/19 07/08/19 11:52 05:29 22:03 POC Glucose 130 H 277 H 375 H 07/08/19 16:12 POC Glucose 118 H Hospitalist ROS - Review of Systems Other: ROS: pertinent positive per SUBJECTIVE. remainder ROS negative - Medication Medications: Active Medications Generic Name Dose Route Start Last Admin Trade Name Freq PRN Reason Stop Dose Admin Albuterol/Ipratropium 3 ml 07/06/19 19:00 07/09/19 10:33 Duoneb EZPAP 3 ml [id number] DEVANTE Administration Arformoterol Tartrate 15 mcg 07/06/19 18:30 07/09/19 06:56 Brovana NEB 15 mcg BID-RT DEVANTE Administration Aspirin 81 mg 07/07/19 09:00 07/09/19 09:01 Ecotrin PO 81 mg DAILY DEVANTE Administration Budesonide 0.5 mg 07/07/19 18:30 07/09/19 06:58 Pulmicort Neb Solution INH 0.5 mg BID-RT DEVANTE Administration Diphenhydramine HCl 25 mg 07/07/19 21:00 07/08/19 21:46 Benadryl PO 25 mg HS DEVANTE Administration Enoxaparin Sodium 40 mg 07/09/19 09:00 07/09/19 09:01 Lovenox SC 40 mg 0900 DEVANTE Administration Insulin Glargine 25 units/ 0.25 mls @ 0 mls/hr 07/06/19 21:00 07/08/19 22:01 Miscellaneous Medication SC 0.25 mls HS DEVANTE Administration Azithromycin 500 mg/ Sodium 250 mls @ 250 mls/hr 07/07/19 14:00 07/08/19 14: 25 Chloride IVPB 250 mls 1400 DEVANTE Administration Insulin Human Lispro 10 units 07/07/19 08:00 07/09/19 09:01 Humalog SC 10 unit 0800 DEVANTE Administration Insulin Human Lispro 10 units 07/07/19 12:00 07/08/19 11:43 Humalog SC 10 unit 1200 DEVANTE Administration Insulin Human Lispro 10 units 07/07/19 17:00 07/08/19 16:57 Humalog SC Not Given 1700 [facility] Insulin Human Lispro 0 units 07/06/19 17:27 07/09/19 05:39 Humalog SC 6 unit .MODERATE SLIDING SC PRN Administration Moderate Correctional Scale Insulin Human Lispro 0 units 07/06/19 17:27 07/08/19 22:03 Humalog SC 5 unit .BEDTIME SLIDING SC PRN Administration Bedtime Correctional Scale Loratadine 10 mg 07/08/19 09:00 07/09/19 09:01 Claritin PO 10 mg DAILY DEVANTE Administration Methylprednisolone Sodium Succinate 40 mg 07/07/19 22:00 07/09/19 05:35 Solu-Medrol IVP 40 mg Q8HR DEVANTE Administration Mirabegron 50 mg 07/06/19 21:00 07/08/19 21:56 Myrbetriq Er PO 50 mg HS DEVANTE Administration Montelukast Sodium 10 mg 07/07/19 21:00 07/08/19 21:46 Singulair PO 10 mg QPM DEVANTE Administration Sodium Chloride 10 ml 07/06/19 16:29 07/07/19 05:56 Flush - Normal Saline IVF 10 ml PRN PRN Administration Saline Flush Hosp A/P - Plan PHYSICAL EXAM: General Appearance: awake alert calm with intermittent coughing episodes and bronchospasm Eye: PERRL, anicteric sclera ENT: normocephalic atraumatic, no oropharyngeal lesions, moist mucosa Neck: supple Heart: RRR, no murmur Respiratory: normal chest expansion Respiratory - other findings: some improvement in diffuse wheezing in bilateral posterior lung oliveros with cough spasms Gastrointestinal: soft, non-tender, non-distended Extremities: no cyanosis, no clubbing, no edema Skin: normal turgor, no lesions Neurological: normal sensation to touch, no weakness, no focal deficits Musculoskeletal: normal tone, normal strength, no muscle wasting Psychiatric: normal affect, normal behavior, A&O x 3 Acute asthma exacerbation: some improvement but not back towards baseline. Pulmonology following. continue same dose of IV solu-medrol 40 mg q8 hours, scheduled duonebs, nebulizers with budesonide and brovana, claritin, singulair, IV zithromax, continue prn antitussive agents. continue PT and OT. T1DM with hyperglycemia. monitor accuchecks with basal and log insulin and ISS coverage History sinus surgery 01/2019 BPH. continue myrbetriq DVT px: LMWH code status: full code Dispo: continue inpatient monitoring.
[2019-07-09] MEDS: Azithromycin 500 MG in Sodium Chloride 0.9% 250 ML 250 ML IVPB SCH (14:39)
[2019-07-09] MEDS: Montelukast Sodium 10 mg Tablet PO SCH (20:10)
[2019-07-09] MEDS: diphenhydrAMINE 25 MG CAP PO SCH (20:10)
[2019-07-09] MEDS: Insulin Glargine 25 UNITS in Pre-Filled Syringe 1 EACH SC SCH (23:03)
[2019-07-10] MEDS: methylPREDNISolone Sod Succ 40 MG VIAL IVP SCH ×3 (05:30→22:02)
[2019-07-10] MEDS: HumaLOG 300 UNITS/3 ML VIAL SC PRN ×2 (05:40→17:27)
[2019-07-10] MEDS: Arformoterol 15 MCG/2 ML NEB NEB SCH ×2 (06:33→19:35)
[2019-07-10] MEDS: Budesonide 0.5 MG/2 ML NEB INH SCH ×2 (06:33→19:35)
[2019-07-10] MEDS: HumaLOG 300 UNITS/3 ML VIAL SC SCH ×3 (08:03→17:27)
[2019-07-10] MEDS: Loratadine 10 MG TAB PO SCH (08:03)
[2019-07-10] MEDS: Enoxaparin Sodium 40 MG/0.4 ML SYRINGE SC SCH (08:03)
[2019-07-10] MEDS: Aspirin 81 mg Enteric Coated Tablet PO SCH (08:03)
--- NOTE | 2019-07-10 11:20 | PRG ---
DATE OF SERVICE: 07/10/2019 SUBJECTIVE: He continues to have problems with wheezing and shortness of breath. OBJECTIVE: VITAL SIGNS: Temperature is 98.0, pulse 100, respirations 20, O2 saturation 96% on room air, blood pressure 144/74. HEENT: Unremarkable. NECK: No adenopathy or JVD. LUNGS: He has diffuse wheezing, although it has improved from 2 days ago. ABDOMEN: Soft, nontender. EXTREMITIES: No edema. ASSESSMENT: Asthma with exacerbation. PLAN: Continue antibiotics, steroids, nebulization treatments. He just needs more time. Job ID: [id number]
[2019-07-10] MEDS: Azithromycin 500 MG in Sodium Chloride 0.9% 250 ML 250 ML IVPB SCH (13:09)
--- NOTE | 2019-07-10 14:31 | PDOC.EVN ---
Event Note - Event Note Event Note: [id number] Progress
--- NOTE | 2019-07-10 14:56 | PRG ---
DATE OF SERVICE: 07/10/2019 This is a followup for asthma exacerbation. CHIEF COMPLAINT: The patient continues to be short of breath with minimal exertion and wheezing. Overall, he feels a little better, but not much. PHYSICAL EXAMINATION: GENERAL: He is in [id number] respiratory distress. VITAL SIGNS: Blood pressure is 144/74, pulse is 100, respiratory rate is 20, and temperature is 98. HEAD: Normocephalic and atraumatic. NECK: Supple. CHEST: Diffuse bilateral expiratory wheeze. HEART: S1 and S2 regular, tachycardic. ABDOMEN: Soft and nontender. Bowel sounds present. NEUROLOGIC: Awake, alert, and oriented x3. No focal deficits. PSYCHIATRIC: Unable to assess. EXTREMITIES: No clubbing, no cyanosis. REVIEW OF SYSTEMS: Review of 14 systems negative except what is mentioned in the history of present illness. CURRENT MEDICATIONS: Reviewed. ASSESSMENT AND PLAN: 1. Acute asthma exacerbation, some improvement, but not much. Continue with IV steroids, bronchodilators scheduled as needed, following. 2. Diabetes mellitus type 1 with hyperglycemia. Continue to monitor Accu-Cheks with basal insulin and insulin sliding coverage. 3. Benign prostatic hypertrophy. Continue with current medication. 4. History of sinus surgery. 5. Deep venous thrombosis prophylaxis with low-molecular weight heparin. 6. Code status, full code. 7. Disposition, continue with inpatient monitoring. Job ID: [id number]
[2019-07-10] MEDS: Montelukast Sodium 10 mg Tablet PO SCH (20:35)
[2019-07-10] MEDS: Insulin Glargine 25 UNITS in Pre-Filled Syringe 1 EACH SC SCH (20:36)
[2019-07-10] MEDS: diphenhydrAMINE 25 MG CAP PO SCH (20:36)
[2019-07-11] MEDS: HumaLOG 300 UNITS/3 ML VIAL SC PRN ×2 (05:40→16:45)
[2019-07-11] MEDS: Budesonide 0.5 MG/2 ML NEB INH SCH ×2 (06:28→19:26)
[2019-07-11] MEDS: methylPREDNISolone Sod Succ 40 MG VIAL IVP SCH ×2 (06:38→13:56)
[2019-07-11] MEDS: Arformoterol 15 MCG/2 ML NEB NEB SCH ×2 (06:40→19:27)
[2019-07-11] MEDS: Enoxaparin Sodium 40 MG/0.4 ML SYRINGE SC SCH (08:32)
[2019-07-11] MEDS: Loratadine 10 MG TAB PO SCH (08:32)
[2019-07-11] MEDS: Aspirin 81 mg Enteric Coated Tablet PO SCH (08:32)
[2019-07-11] MEDS: HumaLOG 300 UNITS/3 ML VIAL SC SCH ×3 (08:33→16:43)
--- NOTE | 2019-07-11 13:43 | PDOC.EVN ---
Event Note - Event Note Event Note: [id number] Progress
[2019-07-11] MEDS: Azithromycin 500 MG in Sodium Chloride 0.9% 250 ML 250 ML IVPB SCH (13:56)
--- NOTE | 2019-07-11 14:02 | PRG ---
DATE OF SERVICE: 07/11/2019 CHIEF COMPLAINT: The patient continues to be short of breath. Denies chest pain, nausea, vomiting, or abdominal pain. REVIEW OF SYSTEMS: Review of 14 systems negative except what is mentioned above. PHYSICAL EXAMINATION: GENERAL: The patient is awake, alert, in mild respiratory distress. VITAL SIGNS: Temperature is 98.2, pulse is 79, respiratory rate is 20, blood pressure 144/79. HEAD AND NECK: Normocephalic, atraumatic. Neck is supple. CHEST: Bilateral expiratory wheeze. HEART: S1, S2. Regular. ABDOMEN: Soft, nontender. Bowel sounds present. NEUROLOGIC: Awake, alert, and oriented. PSYCHIATRY: Unable to assess. EXTREMITIES: No clubbing. No cyanosis. ASSESSMENT AND PLAN: 1. Acute asthma exacerbation, minimal improvement. Continue with IV steroids, bronchodilators. 2. Diabetes mellitus, hyperglycemia. Continue to monitor with Accu-Cheks with basal insulin and sliding scale coverage. 3. Benign prostatic hypertrophy. 4. History of sinus surgery. 5. Deep venous thrombosis prophylaxis with low-molecular weight heparin. 6. Code status, full code. 7. Disposition, continue with inpatient monitoring for now. Job ID: [id number]
--- NOTE | 2019-07-11 18:31 | PRG ---
DATE OF SERVICE: 07/11/2019 INTERVAL HISTORY: The patient is doing really well from respiratory standpoint. He is not back to baseline yet, but is significantly better compared to presentation. He denies any fevers or chills. There were no significant overnight events. Otherwise, he is returning to his usual state of health, albeit slowly. PHYSICAL EXAMINATION: VITAL SIGNS: Afebrile, pulse 79, blood pressure 144/79, respirations 20, and saturation 100% on room air. GENERAL: The patient is awake and alert, in no apparent distress. LUNGS: Wonderful air entry. There is a prolonged expiratory phase and polyphonic wheezing present. Deep breathing stimulates the cough, which generates rhonchi. With tidal respirations, no rhonchi are present. HEART: Normal rate and regular. ABDOMEN: Soft, nontender, nondistended. Bowel sounds are positive. MUSCULOSKELETAL: No cyanosis or clubbing. There is no pitting in the bilateral lower extremities. NEUROLOGIC: Grossly nonfocal. LABORATORY DATA: Respiratory virus panel is negative for viral pathogens. ASSESSMENT: Asthma with acute exacerbation. DISCUSSION AND PLAN: The patient is on steroids, nebulized medications, and antibiotics. Once he is comfortable, he can be considered for transition out of the hospital. All medications will be converted over to p.o. He has completed a course of antibiotics and they will be interrupted. Job ID: [id number]
[2019-07-11] MEDS: Montelukast Sodium 10 mg Tablet PO SCH (20:37)
[2019-07-11] MEDS: diphenhydrAMINE 25 MG CAP PO SCH (20:37)
[2019-07-11] MEDS: Insulin Glargine 25 UNITS in Pre-Filled Syringe 1 EACH SC SCH (20:42)
[2019-07-12] MEDS: Budesonide 0.5 MG/2 ML NEB INH SCH ×2 (07:33→18:02)
[2019-07-12] MEDS: Aspirin 81 mg Enteric Coated Tablet PO SCH (08:38)
[2019-07-12] MEDS: Enoxaparin Sodium 40 MG/0.4 ML SYRINGE SC SCH (08:39)
[2019-07-12] MEDS: HumaLOG 300 UNITS/3 ML VIAL SC SCH ×3 (08:39→18:48)
[2019-07-12] MEDS: Loratadine 10 MG TAB PO SCH (08:39)
[2019-07-12] MEDS: predniSONE 20 MG TAB PO SCH (08:39)
[2019-07-12] MEDS: Arformoterol 15 MCG/2 ML NEB NEB SCH ×2 (10:50→18:01)
--- NOTE | 2019-07-12 12:51 | PRG ---
DATE OF SERVICE: 07/12/2019 SUBJECTIVE: The patient still feels somewhat poorly. He thought about going home today, but he has spell this morning and kind of backed off his desire to leave. OBJECTIVE: VITAL SIGNS: Temperature 98, pulse 86, respirations 20, O2 saturation 98% on room air, and blood pressure 119/68. HEENT: Unremarkable. NECK: No adenopathy or JVD. LUNGS: Diffuse wheezing. CARDIAC: S1 and S2, regular. ABDOMEN: Soft. EXTREMITIES: No edema. ASSESSMENT: Severe asthma with exacerbation. PLAN: He has been transitioned over to oral steroids. He continues breathing treatments. I think he can go home tomorrow morning. Job ID: [id number]
--- NOTE | 2019-07-12 12:52 | PDOC.EVN ---
Event Note - Event Note Event Note: [id number] progress
--- NOTE | 2019-07-12 13:09 | PRG ---
DATE OF SERVICE: 07/12/2019 SUBJECTIVE: The patient continues to be short of breath and wheezing. The patient states that overall, he is feeling better than a week ago, but still gets short of breath easily with any minimal exertion, continued to cough with production of thick sputum. REVIEW OF SYSTEMS: Review of 14 systems negative except what is mentioned above. PHYSICAL EXAMINATION: GENERAL: The patient is awake, alert, in mild respiratory distress. VITAL SIGNS: Temperature is 98, pulse is 86, respiratory rate is 20, and blood pressure 119/68. HEAD AND NECK: Normocephalic, atraumatic. NECK: Supple. CHEST: Bilateral expiratory wheezes. HEART: S1, S2. Regular. ABDOMEN: Soft, nontender. Bowel sounds present. NEUROLOGIC: The patient is awake, alert, and oriented. No focal deficits. PSYCH: Unable to assess. EXTREMITIES: No clubbing or cyanosis. ASSESSMENT AND PLAN: 1. Acute asthma exacerbation. Overall, there is improvement, but still the patient continued to get short of breath with any minimal exertion and continued to have significant wheezing. The patient is on bronchodilators and IV steroids. 2. Diabetes mellitus, hyperglycemia. Continue to monitor with Accu-Cheks with basal insulin sliding scale coverage. 3. Benign prostatic hypertrophy. 4. History of sinus surgery. 5. Deep venous thrombosis prophylaxis with low-molecular weight heparin. 6. Code status. Full code. 7. Disposition. Continue with inpatient monitoring for now. Job ID: [id number]
[2019-07-12] MEDS: Montelukast Sodium 10 mg Tablet PO SCH (20:50)
[2019-07-12] MEDS: diphenhydrAMINE 25 MG CAP PO SCH (20:50)
[2019-07-12] MEDS: Insulin Glargine 25 UNITS in Pre-Filled Syringe 1 EACH SC SCH (20:51)
[2019-07-13] MEDS: Arformoterol 15 MCG/2 ML NEB NEB SCH (06:55)
[2019-07-13] MEDS: Budesonide 0.5 MG/2 ML NEB INH SCH (06:59)
[2019-07-13] MEDS: HumaLOG 300 UNITS/3 ML VIAL SC SCH ×2 (09:21→14:02)
[2019-07-13] MEDS: Loratadine 10 MG TAB PO SCH (09:22)
[2019-07-13] MEDS: Aspirin 81 mg Enteric Coated Tablet PO SCH (09:22)
[2019-07-13] MEDS: Enoxaparin Sodium 40 MG/0.4 ML SYRINGE SC SCH (09:23)
[2019-07-13] MEDS: predniSONE 20 MG TAB PO SCH (09:23)
--- NOTE | 2019-07-13 10:22 | PRG ---
DATE OF SERVICE: 07/13/2019 SUBJECTIVE: He is doing better. He wants to go home desperately. OBJECTIVE: VITAL SIGNS: Temperature 97.8, pulse 91, respirations 20, saturations 99%, blood pressure 130/81. HEENT: Unremarkable. NECK: He has upper airway noise radiating to his lungs. LUNGS: In his lung oliveros, he has decreased wheezing compared to before. CARDIAC: S1 and S2. Regular. ABDOMEN: Soft. EXTREMITIES: No edema. ASSESSMENT: Asthma with exacerbation. PLAN: I believe he is stable to go home. I would wean his prednisone over 2 weeks. Continue his nebulization treatments. He needs to follow up with Dr. Cantrell in about 2 weeks. Job ID: [id number]
[2019-07-13 10:57] VITALS: BP 132/78; TEMP 98.1
--- NOTE | 2019-07-13 12:23 | PDOC.EVN ---
Event Note - Event Note Event Note: [id number] discharge
--- NOTE | 2019-07-13 12:57 | DIS ---
DATE OF ADMISSION: 07/07/2019 DATE OF DISCHARGE: 07/13/2019 FINAL DIAGNOSES: 1. Acute exacerbation of asthma, severe, improved. 2. Diabetes mellitus, hyperglycemia. 3. Benign prostatic hypertrophy. 4. History of sinus surgery. HOSPITAL COURSE: Mr. Espino is a 79-year-old male with past medical history of bronchial asthma, chronic sinus disease, sinus surgery, diabetes, and benign prostatic hypertrophy. The patient was admitted for severe asthma exacerbation. The patient was treated with bronchodilators, IV steroids, and IV antibiotic. The patient shows very slow clinical improvement. Overall, he is improving, but still have some shortness of breath and wheezing with exertion. The patient desperately wants to go home today. The patient was seen by Pulmonary and was cleared for discharge. The patient will be discharged on tapering dose of prednisone, continue with bronchodilators and nebulizer treatments at home. The patient will follow with his peanut grader. CONDITION ON DISCHARGE: Stable. DIET: Diabetic diet. DISCHARGE MEDICATIONS: See home medication reconciliation form. FOLLOWUP: Follow up with his peanut grader in a couple of weeks. Job ID: [id number]
== END 2019-07-13 14:04 | disposition home or self-care (01) | DRG 203 ==
LOC: ERS 10:32 → 2SW 16:28 → OBSVTOIN 07-07 12:19 → T4-B 07-07 15:40
PROVIDERS: ADMIT Hospitalist; ATTEND Hospitalist
DX: J45.901 Unspecified asthma with (acute) exacerbation (principal); E10.65 Type 1 diabetes mellitus with hyperglycemia; N32.81 Overactive bladder; N40.0 Benign prostatic hyperplasia without lower urinary tract symptoms; Z90.49 Acquired absence of other specified parts of digestive tract; Z79.4 Long term (current) use of insulin; Z98.1 Arthrodesis status; Z79.82 Long term (current) use of aspirin; Z79.51 Long term (current) use of inhaled steroids; Z79.899 Other long term (current) drug therapy; Z87.891 Personal history of nicotine dependence
CPT/HCPCS: 36416; 71045; 80053; 83735; 83880; 84484; 85025; 87633; 87798; 93005; 94640; 94644; 96365; J0456; J1650; J1815; J2920; J3475; J7050; J7512; J7611; J7620; J7626; Q0163

== ENCOUNTER 2019-08-06 08:17 | Outpatient (CLI) | payer MEDICARE ==
--- NOTE | 2019-08-06 08:37 | RAD ---
EXAM: Chest 2 views: HISTORY: Dyspnea COMPARISON: 07/06/2019 FINDINGS: There is a normal-sized cardiomediastinal silhouette. There is no evidence of consolidation, mass, or pleural effusion. Degenerative changes are seen in the spine. IMPRESSION: No evidence of acute cardiopulmonary disease
== END 2019-08-06 08:18 | disposition home or self-care (01) ==
LOC: RAD 08:17
PROVIDERS: ATTEND Internal Medicine Critical Care Medicine
DX: R06.00 Dyspnea, unspecified (principal)
CPT/HCPCS: 71046

== ENCOUNTER 2019-12-24 11:52 | Outpatient (CLI) | payer MEDICARE ==
--- NOTE | 2019-12-24 12:32 | RAD ---
EXAM: Chest 2 views: HISTORY: Dyspnea COMPARISON: 08/06/2019 FINDINGS: There is a normal-sized cardiomediastinal silhouette. Increased interstitial markings are present. There is no evidence of consolidation, mass, or pleural effusion. Degenerative changes are seen in the spine. IMPRESSION: No evidence of acute cardiopulmonary disease
== END 2019-12-24 11:53 | disposition home or self-care (01) ==
LOC: BICRAD 11:52
PROVIDERS: ATTEND Internal Medicine Critical Care Medicine
DX: R06.00 Dyspnea, unspecified (principal)
CPT/HCPCS: 71046

== ENCOUNTER 2022-02-21 12:56 | Inpatient (IN) | payer MEDICARE ==
[2022-02-21] MEDS ORDERED: Acetaminophen 500 MG TAB ONE (13:34)
[2022-02-21 13:40] LABS: Hemoglobin 14.9 g/dL (14.0-18.0); Mean Corpuscular HGB CONC 33.4 g/dL (32.0-36.0); Mean Corpuscular Hemoglobin 33.4 pg (27.0-31.0); Mean Platelet Volume 8.1 fL (7.4-10.4); Platelet Count 267 thou/uL (130-400); Red Blood Cell (RBC) Count 4.46 mill/uL (4.70-6.10); White Blood Cell (WBC) Count 14.7 thou/uL (4.8-10.8)
[2022-02-21 13:50] LABS: ALT (SGPT) 17 U/L (8-55); AST (SGOT) 18 U/L (5-34); Alkaline Phosphatase 79 U/L (40-110); Anion Gap 16 mmol/L (10-20); BUN (Urea Nitrogen) 19 mg/dL (8.4-25.7); Bilirubin, Total 1.2 mg/dL (0.2-1.2); Calc. Creatinine Clearance 0 mL/min (70-130); Calcium 8.8 mg/dL (7.8-10.44); Carbon Dioxide 24 mmol/L (23-31); Chloride 99 mmol/L (98-107); Estimated GFR 71; Globulin 2.8 g/dL (2.4-3.5); Glucose 136 mg/dL (83-110); Potassium 4.1 mmol/L (3.5-5.1); Protein, Total 6.8 g/dL (5.8-8.1); Sodium 135 mmol/L (136-145)
[2022-02-21 13:56] LABS: Band 2 % (5-11); Lymphocytes 4 % (21-51); MDiff Complete? YES; Macrocytosis SLIGHT = 6-15 cells (100X) (0-5/hpf); Monocytes 18 % (0-10); Neutrophil 69 % (42-75); Platelet Morphology Comment Appears Adequate; Polychromasia SLIGHT = 2-3 cells (100X) (0-2/hpf); Reactive Lymphocytes 5 % (0-10)
[2022-02-21] MEDS ORDERED: cefTRIAXone\\ROCEPHIN 1 GM VIAL ONE (13:59)
[2022-02-21 14:07] LABS: Bacteria/HPF None Seen HPF (None Seen); Bilirubin Negative (Negative); Blood, Urine 1+ (Negative); Clarity Clear (Clear); Glucose, Urine (Dipstick) Normal (Negative); Ketone, Urine 20 mg/dL (Negative); Leukocyte Negative Leu/uL (Negative); Nitrite Negative (Negative); Protein, Urine (Dipstick) 50 mg/dL (Neg-Trace); Squamous Epithelial None Seen HPF (0-3); WBC/HPF 0-3 HPF (0-3)
[2022-02-21 14:11] LABS: CKMB 1.2 ng/mL (0-6.6)
[2022-02-21] MEDS ORDERED: Aspirin Chewable 81 MG TAB ONE (14:18)
[2022-02-21] MEDS ORDERED: Aspirin 325 MG TAB ONE (14:20)
[2022-02-21 14:37] LABS: SARS-CoV-2 NAA Rapid Test Not Detected (NotDetected)
[2022-02-21] MEDS ORDERED: Vancomycin 1 GM/200 ML BAG ONE (15:05)
[2022-02-21] MEDS ORDERED: Ondansetron PF 4 MG/2 ML Vial IVP PRN (15:10)
[2022-02-21] MEDS ORDERED: HumaLOG 300 UNITS/3 ML VIAL SC PRN (15:12)
[2022-02-21] MEDS ORDERED: Dextrose 5% in Water 1,000 ML IV PRN (15:12)
[2022-02-21] MEDS ORDERED: Dextrose 50% Abboject 50 ML SYRINGE SLOW IVP PRN (15:12)
[2022-02-21 16:34] VITALS: BMI 22.0
[2022-02-21 17:15] LABS: Troponin I Less than 0.010 ng/mL (< 0.028)
[2022-02-21] MEDS: Sodium Chloride 0.9% 1,000 ML IV SCH (17:58)
[2022-02-21 19:54] LABS: Troponin I Less than 0.010 ng/mL (< 0.028)
[2022-02-21] MEDS ORDERED: Aspirin 81 mg Enteric Coated Tablet PO PRN (20:16)
[2022-02-21] MEDS: Insulin Glargine 30 UNITS/0.3 ML VIAL SC SCH (21:34)
[2022-02-21] MEDS: diphenhydrAMINE 25 MG CAP PO SCH (21:35)
[2022-02-22 05:22] LABS: Anion Gap 12 mmol/L (10-20); BUN (Urea Nitrogen) 13 mg/dL (8.4-25.7); Calc. Creatinine Clearance 72 mL/min (70-130); Calcium 8.7 mg/dL (7.8-10.44); Carbon Dioxide 25 mmol/L (23-31); Chloride 104 mmol/L (98-107); Estimated GFR 88; Glucose 124 mg/dL (83-110); Potassium 4.1 mmol/L (3.5-5.1); Sodium 137 mmol/L (136-145)
[2022-02-22 05:32] LABS: Band 9 % (5-11); Hemoglobin 12.6 g/dL (14.0-18.0); Lymphocytes 8 % (21-51); MDiff Complete? YES; Mean Corpuscular Hemoglobin 32.6 pg (27.0-31.0); Mean Corpuscular Volume 98.6 fL (78.0-98.0); Mean Platelet Volume 8.1 fL (7.4-10.4); Monocytes 8 % (0-10); Neutrophil 75 % (42-75); Platelet Count 235 thou/uL (130-400); Red Blood Cell (RBC) Count 3.85 mill/uL (4.70-6.10); White Blood Cell (WBC) Count 11.7 thou/uL (4.8-10.8)
[2022-02-22] MEDS: Sodium Chloride 0.9% 1,000 ML IV SCH (06:02)
[2022-02-22] MEDS ORDERED: Atorvastatin Calcium 40 MG TAB PO SCH ×2 (09:00→21:00)
[2022-02-22] MEDS: HumaLOG 300 UNITS/3 ML VIAL SC SCH ×3 (09:28→17:57)
[2022-02-22] MEDS: Montelukast Sodium 10 mg Tablet PO SCH (09:29)
[2022-02-22] MEDS: Enoxaparin Sodium 40 MG/0.4 ML SYRINGE SC SCH (09:29)
[2022-02-22] MEDS: Multivitamin W/ Minerals 1 TAB PO SCH (09:29)
[2022-02-22] MEDS: Acetaminophen 325 MG TAB PO PRN (09:34)
[2022-02-22] MEDS ORDERED: Insulin Glargine 30 UNITS/0.3 ML VIAL SC SCH (21:30)
[2022-02-22] MEDS: diphenhydrAMINE 25 MG CAP PO SCH (22:25)
[2022-02-22] MEDS: Insulin Glargine 30 UNITS/0.3 ML VIAL SC SCH (22:26)
[2022-02-23 04:48] LABS: Hemoglobin 11.7 g/dL (14.0-18.0); Mean Corpuscular HGB CONC 32.7 g/dL (32.0-36.0); Mean Corpuscular Hemoglobin 32.9 pg (27.0-31.0); Mean Platelet Volume 7.9 fL (7.4-10.4); Platelet Count 231 thou/uL (130-400); RBC Distribution Width 11.8 % (11.5-14.5); Red Blood Cell (RBC) Count 3.55 mill/uL (4.70-6.10); White Blood Cell (WBC) Count 10.9 thou/uL (4.8-10.8)
[2022-02-23 05:03] LABS: Anion Gap 12 mmol/L (10-20); BUN (Urea Nitrogen) 12 mg/dL (8.4-25.7); Calc. Creatinine Clearance 73 mL/min (70-130); Calcium 8.6 mg/dL (7.8-10.44); Carbon Dioxide 25 mmol/L (23-31); Chloride 104 mmol/L (98-107); Estimated GFR 88; Glucose 124 mg/dL (83-110); Potassium 3.9 mmol/L (3.5-5.1); Sodium 137 mmol/L (136-145)
[2022-02-23 05:18] LABS: Band 3 % (5-11); Eosinophils 3 % (0-10); Lymphocytes 10 % (21-51); MDiff Complete? YES; Monocytes 15 % (0-10); Neutrophil 69 % (42-75)
[2022-02-23] MEDS: Multivitamin W/ Minerals 1 TAB PO SCH (09:32)
[2022-02-23] MEDS: HumaLOG 300 UNITS/3 ML VIAL SC SCH ×3 (09:32→17:17)
[2022-02-23] MEDS: Acetaminophen 325 MG TAB PO PRN (09:32)
[2022-02-23] MEDS: Enoxaparin Sodium 40 MG/0.4 ML SYRINGE SC SCH (09:33)
[2022-02-23] MEDS: Montelukast Sodium 10 mg Tablet PO SCH (09:33)
[2022-02-23] MEDS ORDERED: Iopamidol 370 76% 100 ML VIAL ONE (14:38)
[2022-02-23 17:21] VITALS: BP 150/74; TEMP 98.2
== END 2022-02-23 18:30 | disposition home or self-care (01) | DRG 871 ==
LOC: ERS 12:56 → SUATTDRO 12:56 → 2SW 14:39 → OBSVTOIN 02-23 11:57
PROVIDERS: ADMIT Internal Medicine; ATTEND Internal Medicine
DX: A41.9 Sepsis, unspecified organism (principal); J18.9 Pneumonia, unspecified organism; Z20.822 Contact with and (suspected) exposure to COVID-19; J45.909 Unspecified asthma, uncomplicated; E10.9 Type 1 diabetes mellitus without complications; E78.5 Hyperlipidemia, unspecified; R77.8 Other specified abnormalities of plasma proteins; Z79.899 Other long term (current) drug therapy; Z79.82 Long term (current) use of aspirin; Z79.4 Long term (current) use of insulin; Z79.52 Long term (current) use of systemic steroids; Z98.1 Arthrodesis status; Z90.49 Acquired absence of other specified parts of digestive tract; Z87.891 Personal history of nicotine dependence
CPT/HCPCS: 36415; 36416; 70450; 71045; 74177; 80048; 80053; 81003; 81015; 82553; 83605; 83880; 84145; 84484; 85025; 85652; 86140; 87040; 87086; 87633; 93005; 94640; 96374; 96375; J0696; J1650; J1815; J2405; J3370; J7050; J7620; Q9967

== ENCOUNTER 2022-03-31 09:05 | Outpatient (CLI) | payer MEDICARE | END 2022-03-31 09:06 | disposition home or self-care (01) | LOC: SCSRAD 09:05 | PROVIDERS: ATTEND Physician Assistant | DX: E10.9 Type 1 diabetes mellitus without complications (principal); J18.9 Pneumonia, unspecified organism | CPT/HCPCS: 71046 ==